=== PATIENT | male | born 1940 | race Caucasian/White ===

== ENCOUNTER 2017-01-20 07:42 | Day surgery (SDC) | payer MEDICARE ==
--- NOTE | ~2017-01-20 | EGD ---
EGD REPORT [facility] [address] [place] [address] NAME: NELSY PARSON : [birth year] STATUS : REG [facility] PAT#: [id number] AGE: 76 ADM/REG DATE : 01/20/17 MR#: [id number] REPORT SERV DATE: 01/20/17 DICTATED BY: JILLIAN GAMBOA DATE: 01/20/17 REPORT STATUS : Draft TRANSCRIBED BY: [facility] DATE: 01/20/17 Endoscopy Center Patient Name: Nelsy Parson Date of : 1940 Attending MD: JILLIAN GAMBOA MD Procedure Date No Time: 01/20/2017 Procedure: Colonoscopy Indications: Follow-up for history of adenomatous polyps in the colon, Last colonoscopy: July 2011 Referring MD: WILY OH MD, DEANA LESLIE Medicines: General Anesthesia Complications: No immediate complications. Estimated blood loss: None. Procedure: Pre-Anesthesia Assessment: - After reviewing the risks and benefits, the patient was deemed in satisfactory condition to undergo the procedure. - Prior to the procedure, a History and Physical was performed, and patient medications and allergies were reviewed. The patient's tolerance of previous anesthesia was also reviewed. The risks and benefits of the procedure and the sedation options and risks were discussed with the patient. All questions were answered, and informed consent was obtained. Prior Anticoagulants: The patient has taken Brilinta, last dose was 5 days prior to procedure. ASA Grade Assessment: IV - A patient with severe systemic disease that is a constant threat to life. After reviewing the risks and benefits, the patient was deemed in satisfactory condition to undergo the procedure. After I obtained informed consent, the scope was passed under direct vision. Throughout the procedure, the patient's blood pressure, pulse, and oxygen saturations were monitored continuously. The CF [id number] was introduced through the anus and advanced to the cecum, identified by appendiceal orifice and ileocecal valve. The colonoscopy was somewhat difficult due to the patient's body habitus. The ileocecal valve and appendiceal orifice were photographed. The patient tolerated the procedure well. The quality of the bowel preparation was fair. The bowel preparation used was an extended prep with polyethylene glycol (PEG) and magnesium citrate. Scope withdrawal time was greater than 8 minutes. Findings: EGD REPORT [place] [id number] [facility] [place]. [address] NAME: NELSY PARSON : [birth year] STATUS : REG [facility] PAT#: [id number] AGE: 76 ADM/REG DATE : 01/20/17 MR#: [id number] REPORT SERV DATE: 01/20/17 DICTATED BY: JILLIAN GAMBOA DATE: 01/20/17 REPORT STATUS : Draft TRANSCRIBED BY: [employer] [facility] DATE: 01/20/17 The perianal and digital rectal examinations were normal. Pertinent negatives include normal sphincter tone. Non-bleeding internal hemorrhoids were found during retroflexion and were small and Grade I (internal hemorrhoids that do not prolapse). Multiple small-mouthed diverticula were found in the sigmoid colon. The exam was otherwise without abnormality. Impression: - Non-bleeding internal hemorrhoids. - Mild diverticulosis in the sigmoid colon. - The examination was otherwise normal. - Irritable bowel syndrome with constipation. Recommendation: - Discharge patient to home (ambulatory). - Return to previous diet. - Continue present medications including Miralax and Metamucil. - Resume Brilinta today. - No further routine surveillance colonoscopy due to advanced age a comorbidities. - If urgent or emergent endoscopy becomes necessary in the future, would need to do so with endotracheal intubation. - Patient has a contact number available for emergencies. The signs and symptoms of potential delayed complications were discussed with the patient. Return to normal activities tomorrow. Written discharge instructions were provided to the patient. Procedure Code(s): --- Professional --- 18526, Colonoscopy, flexible, proximal to splenic flexure; diagnostic, with or without collection of specimen(s) by brushing or washing, with or without colon decompression (separate procedure) Diagnosis Code(s): --- Professional --- K64.0, First degree hemorrhoids K58.9, Irritable bowel syndrome without diarrhea K57.30, Diverticulosis of large intestine without perforation or abscess without bleeding Z86.010, Personal history of colonic polyps CPT copyright 2013 [employer]. All rights reserved. The codes documented in this report are preliminary and upon host/hostess ground review may be revised to meet current compliance requirements. EGD REPORT [address] [address] NAME: NELSY PARSON : [birth year] STATUS : REG [facility] PAT#: [id number] AGE: 76 ADM/REG DATE : 01/20/17 MR#: [id number] REPORT SERV DATE: 01/20/17 DICTATED BY: JILLIAN GAMBOA. DATE: 01/20/17 REPORT STATUS : Draft TRANSCRIBED BY: [employer] DATE: 01/20/17 JILLIAN GAMBOA MD 01/20/2017 10:28 AM This report has been signed electronically. Number of Addenda: 0 Note Initiated On: 01/20/2017 9:36 AM Scope Withdrawal Time 0 hours 8 minutes 47 seconds
--- NOTE | ~2017-01-20 | EGD ---
EGD REPORT [facility] [address] [place] [address] NAME: NELSY PARSON : [birth year] [place]US : [facility] PAT#: [id number] AGE: 76 ADM/REG DATE : 01/20/17 MR#: [id number] REPORT SERV DATE: 01/20/17 DICTATED BY: JILLIAN GAMBOA DATE: 01/20/17 REPORT STATUS : Draft [facility]ANSCRIBED BY: [facility] DATE: 01/20/17 Endoscopy Center Patient Name: Nelsy Parson Date of : 1940 Attending MD: JILLIAN GAMBOA MD Procedure Date No Time: 01/20/2017 Procedure: Upper GI endoscopy Indications: Dysphagia Referring MD: WILY OH MD, DEANA LESLIE Medicines: Propofol per Anesthesia Complications: No immediate complications. Estimated blood loss: None. Procedure: Pre-Anesthesia Assessment: - After reviewing the risks and benefits, the patient was deemed in satisfactory condition to undergo the procedure. - Prior to the procedure, a History and Physical was performed, and patient medications and allergies were reviewed. The patient's tolerance of previous anesthesia was also reviewed. The risks and benefits of the procedure and the sedation options and risks were discussed with the patient. All questions were answered, and informed consent was obtained. Prior Anticoagulants: The patient has taken Brilinta, last dose was 5 days prior to procedure. ASA Grade Assessment: IV - A patient with severe systemic disease that is a constant threat to life. After reviewing the risks and benefits, the patient was deemed in satisfactory condition to undergo the procedure. After obtaining informed consent, the endoscope was passed under direct vision. Throughout the procedure, the patient's blood pressure, pulse, and oxygen saturations were monitored continuously. The GIF [id number] was introduced through the mouth, and advanced to the third part of duodenum. The upper GI endoscopy was somewhat difficult due to the patient's body habitus. The patient tolerated the procedure fairly well. Findings: The examined esophagus was normal. A guidewire was placed and the scope was withdrawn. Dilation was performed with a Savary dilator with mild resistance at 48 Fr. Estimated blood loss: none. The entire examined stomach and gastroesophageal junction (on retroflexion) were normal. The examined duodenum was normal. EGD REPORT [address] [address] NAME: NELSY PARSON : [birth year] [place]US : [facility] [place]#: [id number] AGE: 76 ADM/REG DATE : 01/20/17 MR#: [id number] REPORT SERV DATE: 01/20/17 DICTATED BY: JILLIAN GAMBOA DATE: 01/20/17 REPORT STATUS : Draft TRANSCRIBED BY: [employer] DATE: 01/20/17 Impression: - Normal esophagus. Dilated. - Normal stomach and gastroesophageal junction. - Normal examined duodenum. - GERD. Recommendation: - Discharge patient to home (ambulatory). - Return to previous diet. - Continue present medications. - Perform a colonoscopy today. - Return to GI clinic PRN. - Patient has a contact number available for emergencies. The signs and symptoms of potential delayed complications were discussed with the patient. Return to normal activities tomorrow. Written discharge instructions were provided to the patient. Procedure Code(s): --- Professional --- 17630, Esophagogastroduodenoscopy, flexible, transoral; with insertion of guide wire followed by passage of dilator(s) through esophagus over guide wire Diagnosis Code(s): --- Professional --- K21.9, Gastro-esophageal reflux disease without esophagitis R13.10, Dysphagia, unspecified CPT copyright 2013 [employer]. All rights reserved. The codes documented in this report are preliminary and upon manager of financial planning review may be revised to meet current compliance requirements. JILLIAN GAMBOA MD 01/20/2017 9:39 AM This report has been signed electronically. Number of Addenda: 0 Note Initiated On: 01/20/2017 9:18 AM Scope Withdrawal Time 0 hours 0 minutes 0 seconds [address] [place] [address]
[~2017-01-20 07:42] MED LIST: AMOXIL500 MG PO; ASAB PO; ASABAYER PO; BRILINTA90 MG PO; BUM1 PO; BUM5 PO; COZ25 PO; CRESTOR10 PO; CRESTOR5 MG PO; FLOMAX4 PO; HALF81 PO; IMDUR30 PO; IMDUR60 PO; KDUR20 PO; KLOR-CON M2020 MEQ PO; LANTUS SC; LIPITOR10 PO; LIPITOR20 PO; LOTRIMIN AF12 TOP; METANX PO; MULTIVIT/MIN PO; MYCOSCROI TOP; NITROSTAT0.4 MG SL; NOVLOGPUMP SC; NOVOLOG SC; NYQUIL PO; P10 PO; PLAVIX300 MG PO; PREDNISONE PO; PRIN10 PO; RAN500 PO; THERAPEUTIC PO; TICLID 250 MG250 MG OR; TRIAMCINOLON0.13 TOP; TRIAMCINOLONE C80 GM TOP; Z-PAK PO
== END 2017-01-20 23:59 | disposition home or self-care (01) ==
LOC: DMU 07:42
PROVIDERS: Internal Medicine Gastroenterology
PROC: 0DJD8ZZ Inspection of Lower Intestinal Tract, Via Natural or Artificial Opening Endoscopic (ICD-10-PCS; principal; 2017-01-20 09:30)
PROC: 0D758ZZ Dilation of Esophagus, Via Natural or Artificial Opening Endoscopic (ICD-10-PCS; 2017-01-20 09:30)
DX: Z09 Encounter for follow-up examination after completed treatment for conditions other than malignant neoplasm (principal); Z86.010 Personal history of colon polyps; K57.30 Diverticulosis of large intestine without perforation or abscess without bleeding; K64.0 First degree hemorrhoids; K58.1 Irritable bowel syndrome with constipation; K21.9 Gastro-esophageal reflux disease without esophagitis; K44.9 Diaphragmatic hernia without obstruction or gangrene; I10 Essential (primary) hypertension; I25.2 Old myocardial infarction; I25.10 Atherosclerotic heart disease of native coronary artery without angina pectoris; E78.00 Pure hypercholesterolemia, unspecified; E11.9 Type 2 diabetes mellitus without complications; J40 Bronchitis, not specified as acute or chronic; G47.33 Obstructive sleep apnea (adult) (pediatric); M19.90 Unspecified osteoarthritis, unspecified site; Z95.5 Presence of coronary angioplasty implant and graft; Z95.1 Presence of aortocoronary bypass graft; Z99.89 Dependence on other enabling machines and devices; Z88.5 Allergy status to narcotic agent; Z88.8 Allergy status to other drugs, medicaments and biological substances; Z91.041 Radiographic dye allergy status; Z79.82 Long term (current) use of aspirin; Z79.4 Long term (current) use of insulin; Z79.01 Long term (current) use of anticoagulants; Z79.899 Other long term (current) drug therapy; Z96.41 Presence of insulin pump (external) (internal); Z87.891 Personal history of nicotine dependence; Z87.01 Personal history of pneumonia (recurrent); Z90.49 Acquired absence of other specified parts of digestive tract; Z98.890 Other specified postprocedural states
CPT/HCPCS: 82962; J0330